=== PATIENT | male | born 1975 | race Caucasian/White ===

== ENCOUNTER 2018-04-10 12:14 | Outpatient (REF) | payer BC, SELFPAY ==
[2018-04-10 20:37] LABS: Abs Immature Grans 0.01 k/cumm (0.0-0.09); Absolute Basophil Count 0.01 k/cumm (0.0-0.2); Absolute Eosinophil Count 0.18 k/cumm (0.0-0.7); Absolute Lymphocyte Count 2.49 k/cumm (1.2-3.4); Absolute Monocyte Count 0.43 k/cumm (0.11-0.7); Absolute Neutrophil Count 2.38 k/cumm (1.2-6.7); Basophils % 0.2; Eosinophils % 3.3; HCT 44.1 % (40.0-50.0); HGB 14.7 g/dL (13.5-17.5); Immature Grans % 0.2; Lymphocytes % 45.3; Mean Corp. HGB Concentration 33.3 g/dL (32.0-36.0); Mean Corpuscular Hemoglobin 29.6 pg (27.0-33.0); Mean Corpuscular Volume 88.9 fL (80-95); Mean Platelet Volume 11.6 fL (8.0-11.0); Monocytes % 7.8; Neutrophils % 43.2; Platelet Count 208 x1000/uL (130-400); RBC 4.96 m/cumm (4.50-6.00); RBC Distribution Width 13.7 % (11.8-14.1)
[2018-04-10 20:50] LABS: ALT 31 U/L (12-78); AST 17 U/L (15-37); Albumin 3.9 g/dL (3.4-5.0); Alkaline Phosphatase 126 U/L (46-116); Anion Gap 8.5 mmol/L (3-11); BUN 19 mg/dL (7-18); Bilirubin, Total 0.2 mg/dL (0.2-1.0); CO2 28.5 mmol/L (21.0-32.0); Calcium 9.3 mg/dL (8.5-10.1); Chloride 106 mmol/L (98-107); Cholesterol 206 mg/dL (50-200); Glucose 96 mg/dL (70-100); HDL Cholesterol 42 mg/dL (40-60); LDL CHOLESTEROL 139 mg/dL (<100); Potassium 4.5 mmol/L (3.5-5.1); Sodium 143 mmol/L (136-145); Total Protein 6.8 g/dL (6.4-8.2); Triglyceride 127 mg/dL (30-150)
== END 2018-04-10 12:34 ==
LOC: NCHCN 12:14
PROVIDERS: Visit Provider Family Medicine
DX: E78.5 Hyperlipidemia, unspecified (principal); R61 Generalized hyperhidrosis; Z00.00 Encounter for general adult medical examination without abnormal findings
CPT/HCPCS: 80053; 80061; 83721; 85025

== ENCOUNTER 2019-02-13 01:23 | Outpatient (CLI) | payer OTHER, SELFPAY ==
--- NOTE | 2019-02-13 08:50 | DI.CT_ITS ---
EXAM: CT HEAD WO/W CLINICAL HISTORY: HEADACHES, RT EYE PRESSURE, MOOD CHANGES, [id number] TECHNIQUE: Pre and post IV contrast. COMPARISON: No exams were available for comparison FINDINGS: No intracranial hemorrhage, mass or infarct is seen. No abnormal enhancing lesions. The vascular s tructures appear intact. The orbits and visualized portions of the sinuses and mastoid air cells are unremarkable. Ventricles are normal in size. IMPRESSION: Negative head CT.
[2019-02-13] MEDS: Normal Saline - Diluent 50 ML VIAL IV (09:06)
[2019-02-13] MEDS: Omnipaque 350 MG/ML 100 ML BTL IJ (09:06)
== END 2019-02-13 01:43 ==
PROVIDERS: Visit Provider Nurse Practitioner Adult Health
DX: R51 Headache (principal); H57.11 Ocular pain, right eye; F34.89 Other specified persistent mood disorders
CPT/HCPCS: 70470; J3490

== ENCOUNTER 2019-07-31 13:07 | Emergency (ER) | payer BC, OTHER, SELFPAY ==
--- NOTE | 2019-07-31 13:15 | DI.RAD_ITS ---
EXAM: XR WRIST RT COMPLETE CLINICAL HISTORY: Fell through a glass window, laceration TECHNIQUE: COMPARISON: No exams were available for comparison FINDINGS: Three views were obtained. Carpal alignment appears within normal limits. No gross foreign body yosvany ntified. No fracture seen. IMPRESSION:
[2019-07-31 13:16] VITALS: BP 136/92; PULSE 72; RESP 16; TEMP 36.7; O2SAT 97
--- NOTE | 2019-07-31 14:05 | NUR.NOTE ---
lacs cleansed with NS
--- NOTE | 2019-07-31 14:53 | ED.GENADUL_ITS ---
Discharge Plan Disposition Patient Disposition: HOME Condition: Stable Discharge Details Chief Complaint: Laceration Clinical Impression: Laceration of wrist Primary Care Provider: Rosanne,Local ED Provider: Jaun Tilley Home Meds and New Rx's Prescriptions: Continued acetaminophen [Acetaminophen Extra Strength] 500 MG tablet 500 mg PO BID RF: 0 ibuprofen 400 MG tablet 400 mg PO BID RF: 0 ciprofloxacin HCl 500 MG tablet 500 mg PO BID Qty: 20 RF: 0 oxycodone 5 MG tablet 5 mg PO Q6H PRN PRN (Reason: Pain) Qty: 12 RF: 0 Discharge Instructions Instructions: Laceration (ED) Additional Instructions: Keep the area clean and dry. Change antibiotic dressing daily. Please watch for new or worsening symptoms and return to the ER for any concerns. I would like you to have the sutures removed in approximately 10 days either back here in the ER or through your primary care office. I do recommend contact your primary care provider tomorrow for prompt outpatient reevaluation and wound evaluation Discharge Data Discharge Date/Time-TO BE ENTERED AT DEPARTURE: 07/31/19 14:59 Medical Decision Making Patient presents with a right wrist laceration. He is right-hand dominant. Neuro, vascular, tendon intact. Bleeding controlled. No obvious foreign body. Will obtain x-ray to evaluate for any potential bony involvement or additional foreign body. The longer laceration-abrasion is very superficial does not require closure. Will close the 2 cm laceration. X-ray right wrist read by me and then confirmed by radiology as negative. Traction cleaned and repaired without difficulty. Patient tolerated well. Wound again cleaned and dressed. Patient with no additional questions or concerns, currently comfortable with discharge. Medical Records Medical records reviewed: Yes I reviewed the patient's medical records. HPI General Mode of arrival: ambulatory . Date/Time Provider Initiated Documentation: 07/31/19 13:23 . Limitations to Documentation: no limitations . Information obtained by: patient . HPI Narrative: This is a 44-year-old gentleman who reports that he has balance issues, was about to fall, put his arm out to catch himself and accidentally went through the garage glass window. He sustained a laceration to his right wrist. He reports mild pain but denies any numbness, tingling, weakness. The laceration did bleed through a few bandages initially but is no longer bleeding. Denies any obvious foreign body. No other injuries, questions or concerns. Believes his tetanus status is up-to-date in the last 5 years Related Data Home Medications Medication Instructions Recorded Confirmed acetaminophen [Acetaminophen Extra 500 mg PO BID 04/24/16 04/24/16 Strength] ciprofloxacin HCl 500 mg PO BID #20 tab 04/24/16 ibuprofen 400 mg PO BID 04/24/16 04/24/16 oxycodone 5 mg PO Q6H PRN PRN #12 tab 04/24/16 Previous Rx's Medication Instructions Recorded ciprofloxacin HCl 500 mg PO BID #20 tab 04/24/16 oxycodone 5 mg PO Q6H PRN PRN #12 tab 04/24/16 Allergies Allergy/AdvReac Type Severity Reaction Status Date / Time No Known Allergies Allergy Unverified 04/24/16 20:01 General Stated Complaint: Laceration DORY: 4 Review of Systems Constitutional Constitutional: Denies weakness Gastrointestinal Gastrointestinal: Denies nausea Musculoskeletal Musculoskeletal: Denies arthralgias, Denies numbness and Denies tingling Neurologic Neurologic: Denies numbness, Denies tingling and Denies weakness [facility] Social History Smoking/Tobacco Use Status: Never Alcohol Intake: current Alcohol Intake frequency: holidays/special occasions only Substance use type: does not use Exam Const General: cooperative, healthy appearing, comfortable and no acute distress Orientation: alert and awake [facility] Head: normal to inspection, normocephalic and atraumatic Mouth: moist mucous membranes Eyes Conjunctivae: conjunctivae normal Neck Neck: normal visual inspection, trachea midline and supple Resp Effort & Inspection: normal respiratory effort and able to speak in complete sentences Cardio Rate: regular rate Rhythm: regular rhythm Skin General skin exam: no rashes or lesions noted Neuro General: patient alert, patient awake, moves all extremities and no focal motor deficits Sensory Exam: no sensory deficits noted Extrem Hand/finger images: 1. Superficial, abrasion-laceration. Well approximated. No bleeding. No obvious foreign body. Approximately 3-1/2 cm 2. 2 cm laceration. No active bleeding. This wound is not well approximated. Neuro, vascular, tendon intact. No obvious foreign body Psych Appearance: grossly normal Mental Status: mental status grossly normal Course Vital Signs Vital signs: Vital Signs Temperature 36.7 C 07/31/19 13:16 Pulse 72 07/31/19 13:16 Respiratory Rate 16 07/31/19 13:16 Blood Pressure 136/92 H 07/31/19 13:16 Pulse Oximetry 97 07/31/19 13:16 Temperature 36.7 C 07/31/19 13:16 Temperature Source Skin 07/31/19 13:16 Pulse 72 07/31/19 13:16 Respiratory Rate 16 07/31/19 13:16 Respiratory Effort Non-Labored 07/31/19 13:16 Blood Pressure 136/92 H 07/31/19 13:16 Blood Pressure Position Sitting 07/31/19 13:16 Pulse Oximetry 97 07/31/19 13:16 Oxygen Delivery Method Room Air 07/31/19 13:16 Oxygen Flow Rate 0 07/31/19 13:16 Procedures Laceration Laceration 1: Site: other (wrist) Side (If applicable): right Size (cm): 2 Description: linear Local Anesthetic: Lidocaine 2% Amount of anesthesia used (mL): 5 Pre-repair: wound explored, irrigated extensively and deep structures intact Skin layer closed with: nylon Size (cm): 4-0 Number of sutures: 3 Technique: simple, interrupted
--- NOTE | 2019-07-31 14:57 | NUR.NOTE ---
after suture, area cleansed with NS, covered with telfa,jorge and coban
[2019-07-31 14:58] VITALS: BP 141/94; PULSE 61; RESP 18; O2SAT 98
== END 2019-07-31 14:59 | disposition home or self-care (01) ==
PROVIDERS: Emergency Provider Physician Assistant
DX: S61.511A Laceration without foreign body of right wrist, initial encounter (principal); W25.XXXA Contact with sharp glass, initial encounter; H83.8X9 Other specified diseases of inner ear, unspecified ear
CPT/HCPCS: 12001; 99284; 73110; 99282

== ENCOUNTER 2020-03-13 23:28 | Outpatient (REF) | payer BC, OTHER, SELFPAY ==
[2020-03-14 15:29] LABS: COVID-19 RT-PCR UVMMC Result Negative (Negative)
== END 2020-03-13 23:29 | disposition home or self-care (01) ==
LOC: NCHCN 23:28
PROVIDERS: Visit Provider Family Medicine
DX: Z20.822 Contact with and (suspected) exposure to COVID-19 (principal)
CPT/HCPCS: U0003

== ENCOUNTER 2020-05-15 17:02 | Outpatient (REF) | payer BC, OTHER, SELFPAY ==
[2020-05-17 13:45] LABS: COVID-19 RT-PCR UVMMC Result Negative (Negative)
== END 2020-05-15 17:03 | disposition home or self-care (01) ==
LOC: NCHCN 17:02
PROVIDERS: PCP Family Medicine; Visit Provider Family Medicine
DX: Z20.822 Contact with and (suspected) exposure to COVID-19 (principal)
CPT/HCPCS: U0003